=== PATIENT | male | born 1990 | race Caucasian/White ===

== ENCOUNTER 2019-04-20 18:42 | Inpatient (IN) | payer MEDICAID ==
[~2019-04-20] VITALS: Ht 170.2 cm; Wt 84.4 kg
--- NOTE | 2019-04-20 19:03 | ERD ---
ER Documentation Chief Complaint Chief Complaint BACK PAIN HPI The patient is a 28-year-old male, presenting to the ER because of upper and lower back pain for the last couple days, worse today around 2 PM while he was taking a shower. He has subjective fever, denies facial pain, neck pain, chest pain, dyspnea, complains of vague diffuse abdominal pain today, has been vomiting for the last 3 days, nonbloody nonbilious emesis, denies dysuria, complains of constipation. 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 Allergies Allergies: Coded Allergies: No Known Allergy (Unverified , 04/20/19) Physical Exam Vitals Vital Signs Date Temp Pulse Resp B/P (MAP) Pulse Ox O2 O2 Flow FiO2 Time Delivery Rate 04/20/19 110 18 148/98 100 Room Air 20:42 (115) 04/20/19 125 18 128/71 100 Room Air 19:13 (90) 04/20/19 100.0 126 22 135/96 98 18:44 (109) Physical Exam Const: No acute distress. Head: Atraumatic. Eyes: Normal Conjunctiva. ENT: Normal External Ears, Nose and Mouth. Neck: Full range of motion. No meningismus. Resp: Clear to auscultation bilaterally. Cardio: Regular tachycardic. Abd: Soft, non distended, normal bowel sounds, vague and diffuse abdominal tenderness, no rigidity/rebound/CVA tenderness Skin: No petechiae or rashes. Back: Mild to moderate thoracic and lumbar tenderness, no erythema/crepitus. Ext: No cyanosis, or edema. Neur: Awake and alert. No focal deficit Psych: Very anxious Result Diagram: 04/20/19192504/20/191925 Results 24 hrs Laboratory Tests Test 04/20/19 19:26 04/20/19 19:29 White Blood Count 19.0 10^3/ul Red Blood Count 5.61 10^6/ul Hemoglobin 17.1 g/dl Hematocrit 49.4 % Mean Corpuscular Volume 88.1 fl Mean Corpuscular Hemoglobin 30.5 pg Mean Corpuscular Hemoglobin Concent 34.6 g/dl Red Cell Distribution Width 13.7 % Platelet Count 214 10^3/UL Mean Platelet Volume 11.1 fl Immature Granulocytes % 0.400 % Neutrophils % 75.0 % Lymphocytes % 14.6 % Monocytes % 9.7 % Eosinophils % 0.0 % Basophils % 0.3 % Nucleated Red Blood Cells % 0.0 /100WBC Immature Granulocytes # 0.080 10^3/ul Neutrophils # 14.2 10^3/ul Lymphocytes # 2.8 10^3/ul Monocytes # 1.8 10^3/ul Eosinophils # 0.0 10^3/ul Basophils # 0.1 10^3/ul Nucleated Red Blood Cells # 0.0 10^3/ul Prothrombin Time 14.1 Sec Prothrombin Time Ratio 1.1 INR International Normalized Ratio 1.08 Activated Partial Thromboplast Time 30.6 Sec Sodium Level 144 mmol/L Potassium Level 3.2 mmol/L Chloride Level 104 mmol/L Carbon Dioxide Level 19 mmol/L Anion Gap 21 Blood Urea Nitrogen 30 mg/dl Creatinine 3.46 mg/dl Est Glomerular Filtrat Rate mL/min 21 mL/min Glucose Level 122 mg/dl Calcium Level 9.9 mg/dl Total Bilirubin 1.9 mg/dl Direct Bilirubin 0.00 mg/dl Indirect Bilirubin 1.9 mg/dl Aspartate Amino Transf (AST/SGOT) 1112 IU/L Alanine Aminotransferase (ALT/SGPT) 215 IU/L Alkaline Phosphatase 76 IU/L Creatine Kinase 02056 IU/L Troponin I < 0.012 ng/ml Total Protein 8.9 g/dl Albumin 5.2 g/dl Globulin 3.70 g/dl Albumin/Globulin Ratio 1.40 Ethyl Alcohol Level < 10.0 mg/dl POC Venous Lactate 2.1 mmol/L Current Medications Medications Dose Sig/Nieves Start Time Status Last (Trade) Ordered Route PRN Stop Time Admin Dose Reason Admin Sodium 2,390 ml BOLUS OVER 2 04/20/19 DC 04/20/19 Chloride HOURS STAT 19:14 19:37 (NS) IV* 04/20/19 19:18 0.5 mg ONCE STAT 04/20/19 DC 04/20/19 Hydromorphone IV 19:14 19:38 HCl 04/20/19 19:19 (Dilaudid) Ondansetron 4 mg ONCE STAT 04/20/19 DC 04/20/19 HCl (Zofran IV 19:14 19:37 Inj) 04/20/19 19:19 Vancomycin 250 ml @ ONCE ONCE 04/20/19 DC 04/20/19 HCl 125 mls/hr IVPB 20:00 20:59 04/20/19 21:59 Piperacillin 100 ml @ ONCE ONCE 04/20/19 DC 04/20/19 Sod/ 200 mls/hr IVPB 20:00 20:03 Tazobactam 04/20/19 20:29 Sod 0.5 mg ONCE STAT 04/20/19 DC 04/20/19 Hydromorphone IV 20:55 20:59 HCl 04/20/19 20:56 (Dilaudid) Sodium 1,000 ml @ Q5H IV 04/20/19 Chloride 200 mls/hr 22:30 Potassium 40 meq ONCE STAT 04/20/19 UNV Chloride PO 22:19 (Klor-Con 20) 04/20/19 22:20 Procedures/[place] [address] Radiology Main Line: [phone] DIAGNOSTIC IMAGING REPORT Patient: ALEX BOSTON : 1990 Age: 28 Sex: M MR #: [id number] DOS: 04/20/192026 Ordering MD: LEANDRA LAMAS MD Location: E/R Room/Bed: PROCEDURE: Right upper quadrant abdominal ultrasound. CLINICAL INDICATION: Abdominal pain TECHNIQUE: Romero scale and color doppler ultrasound images of the right upper quadrant of the abdomen. COMPARISON: None FINDINGS: Pancreas: Not adequately visualized due to overlying bowel gas. Liver: Morphology:Normal in size. Contour:Normal, no evidence of nodularity. Echogenicity: Increased Focal lesions:None. Main portal vein: Patent with hepatopetal flow. Biliary System: Gallbladder wall: Normal thickness. Gallstones: None. Intrahepatic bile ducts: Normal caliber. Common bile duct diameter (mm): 3.7 Kidneys: Right length (cm) : 12.0 Right cortical thickness: Normal. Echogenicity: Normal. Hydronephrosis: None. Renal calculi: None. Focal lesions: None. Free fluid/ascites: None. Other findings: None. IMPRESSION: Normal gallbladder without gallstones. Increased echogenicity of the liver parenchyma suggestive of hepatic steatosis. RPTAT: AADD .Patrick Dang MD, MD Date Time Electronically viewed and signed by .Patrick Dang MD, MD on 04/20/2019 21:01 .B/ CC: LEANDRA LAMAS MD [id number] RPTAT: AADD .Patrick Dang MD, MD Date Time Electronically viewed and signed by .Patrick Dang MD, MD on 04/20/2019 21:01 .B/ CC: LEANDRA LAMAS MD [id number] [place] [address] Radiology Main Line: [phone] DIAGNOSTIC IMAGING REPORT Patient: ALEX BOSTON : 1990 Age: 28 Sex: M MR #: [id number] DOS: 04/20/19 1914 Ordering MD: LEANDRA LAMAS MD Location: E/R Room/Bed: PROCEDURE: CT chest, abdomen and pelvis without contrast. CLINICAL INDICATION: Back pain. TECHNIQUE: CT of the chest, abdomen and pelvis was performed on a multi-detector high-resolution CT scanner. Contiguous axial images were obtained without intravenous contrast. Coronal and sagittal reformatted images were also obtained. Images were reviewed on the PACS workstation. DICOM images are available. One or more of the following dose reduction techniques were used: - Automated exposure control. - Adjustment of the mA and/or kV according to patient size. - Use of iterative reconstruction technique. Exam CTD/vol = 11.66 mGy. Total exam DLP = 960.03 mGy-cm. COMPARISON: None. FINDINGS: Chest: There is no evidence of chest wall mass. The visualized thyroid gland is unremarkable. There are no enlarged axillary lymph nodes. There are no enlarged mediastinal or hilar lymph nodes. The heart is normal in size. There is no peric ardial thickening or effusion. The aorta is of normal course and caliber. There is no parenchymal consolidation or pleural effusion. The central tracheobronchial tree is within normal limits. There is no pneumothorax. Abdomen: The liver is normal in size. There is no focal mass or dilatation of th e biliary tree. The gallbladder is not distended. The spleen, pancreas and bilateral adrenal glands are within normal limits. Bilateral kidneys are normal in size with no contour deforming mass. There is no radiopaque renal or ureteral calculus identified. There is no hydronephrosis or hydroureter. There is no retroperitoneal adenopathy. The abdominal aorta is of normal caliber. There is no abnormal bowel wall thickening or distension. There is no bowel obstruction or free air. A normal appendix is identified. There is no diverticulosis or diverticulitis. There is no ascites. Pelvis: The bladder is unremarkable. The prostate and seminal vesicles are within normal limits. There is no significant pelvic adenopathy or free fluid. Evaluation of the osseous structures demonstrates no suspicious lytic or blastic lesion. IMPRESSION: No acute abnormality identified within the chest, abdomen and pelvis. .Rambo Rivero MD, MD Date Time Electronically viewed and signed by .Rambo Rivero MD, on 04/20/2019 21:47 .T/ CC: LEANDRA LAMAS MD [phone] [place] [address] Radiology Main Line: [phone] DIAGNOSTIC IMAGING REPORT Patient: ALEX BOSTON : 1990 Age: 28 Sex: M MR #: [id number] DOS: 04/20/19 191 Ordering MD: LEANDRA LAMAS MD Location: E/R Room/Bed: PROCEDURE: XR Chest 1 View. CLINICAL INDICATION: Shortness of breath. Sepsis. TECHNIQUE: Single view of the chest was obtained. COMPARISON: None. FINDINGS: Support lines and tubes: None. Mediastinum: Within normal limits of size. Lungs: No consolidations. No pneumothorax. Osseous structures: Intact. Other: None. IMPRESSION: No visualized active disease. RPTAT: AA .Dom Zhong MD, Date Time Electronically viewed and signed by .Dom Zhong MD, on 04/20/2019 20:30 .P/ CC: LEANDRA LAMAS MD [phone] EKG: Read by emergency physician Rate/Rhythm: Sinus tachycardia 110 beats/min QRS, ST, T-waves: No ST elevation, no T inversion, bilateral atrial enlargement Impression: Abnormal EKG UA/UDS Pending MEDICAL MAKING DECISION: The patient is a 28-year-old male, presenting with acute rhabdomyolysis, acute severe sepsis, acute hypokalemia, acute kidney injury, acute abnormal LFT, hepatic steatosis, cholangitis, cholecystitis He was treated with normosaline 30 mm/kg IV, vancomycin IV, Zosyn IV for acute severe sepsis, Virgen catheter for acute kidney injury, Dilaudid 0.5 mg IV x2 for his general body pain with good response. The differential diagnoses considered include but are not limited to spinal abscess, pneumonia, UTI, pyelonephritis, endocarditis MDM: Patient's infectious symptoms have not stabilized and the patient is at risk of rapid decompensation. The patient will be admitted for careful hydration, antibiotic therapy, and infectious source control. SEVERE SEPSIS CRITERIA: Infectious source: unknown End organ damage indicated by: [Lactate > 2.0 mmol/L SEPSIS MANAGEMENT Time of recognition of severe sepsis: 7:35pm 3 HOUR BUNDLE Blood cultures x 2 before broad-spectrum antibiotics: [Yes] 30 ml/kg NS bolus [Completed] Initial lactate []2.1 Repeat lactate Pending SEPTIC SHOCK ASSESSMENT: [No] lactic acid > 4.0 [No] Persistent hypotension (SBP < 90 or 40 mmHg drop, MAP < 65) despite 30 mL/kg IV fluid bolus CRITICAL CARE Critical care time [35] minutes Emergent fluid management while maintaining close respiratory support. Provision of immediate and broad-spectrum antibiotic therapy. Simultaneous assessment for possible sources in order to direct targeted therapy. Consideration for invasive and chemical support to prevent cardiopulmonary collapse. Critical care time is independent of procedures performed. Departure Diagnosis: Primary Impression: Rhabdomyolysis Additional Impressions: Severe sepsis POPEYE (acute kidney injury) Hypokalemia Abnormal LFTs Hepatic steatosis Condition: Stable Comments I discussed the findings with the patient. I notified the patient with Dr. Barber at 10:10 PM via [employer] , who was made aware of the lab, the treatment, the patient condition, pending labs. The patient is admitted to [facility] Disclaimer: Inadvertent spelling and grammatical errors are likely due to EHR/d ictation software use and do not reflect on the overall quality of patient care. Also, please note that the electronic time recorded on this note does not necessarily reflect the actual time of the patient encounter. LEANDRA LAMAS MD Apr 20, 2019 19:03
[2019-04-20] MEDS ORDERED: SODIUM CHLORIDE 0.9% 1L BAG IV* STA (19:14)
[2019-04-20] MEDS ORDERED: ONDANSETRON 4 MG INJ IV STA (19:14)
[2019-04-20] MEDS ORDERED: HYDROmorphONE 0.5 MG/0.5 ML SYG IV STA ×2 (19:14→20:55)
[2019-04-20] MEDS ORDERED: VANCOMYCIN 1 GM (PMX) 250 ML IVPB ONE (20:00)
[2019-04-20] MEDS ORDERED: PIPER-TAZO 3.375 GM IV (PMX) 100 ML IVPB ONE (20:00)
[2019-04-20] MEDS ORDERED: POTASSIUM CHLORIDE (SR) 20 MEQ TAB PO STA (22:19)
--- NOTE | 2019-04-20 22:28 | HP ---
Date/Time of Note Date/Time of Note DATE: 04/20/19 TIME: 22:27 Assessment/Plan VTE Prophylaxis Pharmacological prophylaxis: heparin Lines/Catheters IV C[facility]ter Type (from [facility]): Saline Lock Assessment/Plan Hospital Course This is a 27-year-old male being admitted to the telemetry floor for: #1 Suspect sepsis: No source identified at the current time. Broad-spectrum antibiotics. Initial lactic acid 2.1. Will trend . cultures are pending. #2 severe rhabdomyolysis: Etiology possibly secondary to illicit drug use, excessive heat exposure. CK levels in the 77,000 range. Patient also has concurrent renal failure which is a likely a result of this. Patient does not report any history of renal failure. At the current time provide aggressive IV fluid hydration with normal saline at a rate of 200 to 250 cc an hour. A Virgen catheter has been placed and producing orange-tinged urine. Will monitor urine output. Will monitor CK levels. We will check a ABG level, and consider alkalizing the urine with sodium bicarb. We will also check uric acid level. Will consult nephrology . #3 acute kidney injury: I do not have a previous creatinine. Patient presented creatinine of 3.46. Likely secondary to dehydration, and possible insult from severe rhabdo. Will aggressively hydrate the patient. Will order renal u ltrasound. Urinalysis. Urine studies. Will consult nephrology . Monitor electrolytes closely #4 transaminitis with hyperbilirubinemia: Imaging studies do not show any acute on normalities aside from hepatic steatosis. This likely could be secondary to underlying rhabdomyolysis. Will monitor LFTs while treating the rhabdo. #5 illicit drug use: PRN Ativan for signs of withdrawal. Encourage cessation. #6 DVT GI prophylaxis: Heparin subcu, no GI prophylaxis indicated Further treatment strategy will be implemented as per the clinical course. Result Diagram: 04/20/19192504/20/191925 Results 24hrs Laboratory Tests Test 04/20/19 19:26 04/20/19 19:29 04/20/19 21:31 White Blood Count 19.0 H Red Blood Count 5.61 Hemoglobin 17.1 Hematocrit 49.4 Mean Corpuscular Volume 88.1 Mean Corpuscular Hemoglobin 30.5 Mean Corpuscular Hemoglobin Concent 34.6 Red Cell Distribution Width 13.7 Platelet Count 214 Mean Platelet Volume 11.1 H Immature Granulocytes % 0.400 Neutrophils % 75.0 Lymphocytes % 14.6 L Monocytes % 9.7 Eosinophils % 0.0 Basophils % 0.3 Nucleated Red Blood Cells % 0.0 Immature Granulocytes # 0.080 H Neutrophils # 14.2 H Lymphocytes # 2.8 Monocytes # 1.8 H Eosinophils # 0.0 Basophils # 0.1 Nucleated Red Blood Cells # 0.0 Prothrombin Time 14.1 Prothrombin Time Ratio 1.1 INR International Normalized Ratio 1.08 Activated Partial Thromboplast Time 30.6 Sodium Level 144 Potassium Level 3.2 L Chloride Level 104 Carbon Dioxide Level 19 L Anion Gap 21 H Blood Urea Nitrogen 30 H Creatinine 3.46 H Est Glomerular Filtrat Rate mL/min 21 L Glucose Level 122 Calcium Level 9.9 Total Bilirubin 1.9 H Direct Bilirubin 0.00 Indirect Bilirubin 1.9 H Aspartate Amino Transf (AST/SGOT) 1112 H Alanine Aminotransferase (ALT/SGPT) 215 H Alkaline Phosphatase 76 Creatine Kinase 63487 H Troponin I < 0.012 Total Protein 8.9 H Albumin 5.2 H Globulin 3.70 H Albumin/Globulin Ratio 1.40 Ethyl Alcohol Level < 10.0 H POC Venous Lactate 2.1 *H Lactic Acid Level 1.6 HPI/ROS Admit Date/Time Admit Date/Time Hx of Present Illness Chief complaint: Upper and lower back pain, vomiting, arm stiffness for the last 2 days This is a 28-year-old male who presented to the emergency department with complaints of upper and lower back pain for the last 2 days and bilateral arm and leg stiffness for the last 2 days as well. Patient reports that he was moving from the [facility] and has been mostly staying in his car and has been outside for the last 3 days. He does report that he also started using a new drink called C4. He does report recent methamphetamine use as well. He does report that he has been in the sun quite a lot the last 3 days. He reports that it was difficult for him to contract his hands bilaterally however after coming to the emergency department and receiving treatment his symptoms are improving. He does not know the last time that he urinated. He had a Virgen catheter placed in the emergency department that was producing orange-tinged urine. Also reports she had abdominal pain and he had nonbilious nonbloody episode of vomiting. He is a IV drug user and uses methamphetamines. He also has used other drugs in the past as well. Allergies: NKDA Medications: None ROS Const: As per HPI Eyes : No pain discharge or redness or change in visual acuity ENT: No pain, sore throat, congestion, congestion, dysphagia or discharge Respiratory: No shortness of breath, cough, sputum, wheezing, or pleuritic pain Cardiovascular: No chest pain, palpitation, PND, or edema GI : As per HPI Genitourinary: No dysuria, hematuria, flank pain , discharge or CVA tenderness Musculoskeletal: As per HPI Skin: No rash, bruising or hives Neuro: No headache, dizziness, syncope, seizure, focal weakness Endocrine: No polyuria, polydipsia, temperature intolerance Psych: No hallucination, depression, anxiety or suicidal ideation PMH/Family/Social Past Medical History Medical History: no pertinent history Medications Current Medications Sodium Chloride 1,000 ml @ 200 mls/hr Q5H IV ; Start 04/20/19 at 22:30 IV Flush (NS 3 ml) 3 ml PER PROTOCOL IV ; Start 04/20/19 at 22:30 Ondansetron HCl (Zofran Inj) 4 mg Q6H PRN IV NAUSEA/VOMITING; Start 04/20/19 at 22:30 Acetaminophen (Tylenol Tab) 650 mg Q6H PRN PO .PAIN 1-3 OR TEMP; Start 04/20/19 at 22:30 Morphine Sulfate (morphine) 2 mg Q4H PRN IV .SEVERE PAIN 7-10; Start 04/20/19 at 22:30 Docusate Sodium (Colace) 100 mg Q12H PRN PO .CONSTIPATION; Start 04/20/19 at 22:30 Bisacodyl (Dulcolax) 5 mg DAILY PRN PO .CONSTIPATION; Start 04/20/19 at 22:30 Heparin Sodium (Porcine) (Heparin (5000 Units/1ml)) 5,000 unit Q8 SC ; Start 04/20/19 at 22:30 Coded Allergies: No Known Allergy (Unverified , 04/20/19) Past Surgical History Pilonidal cyst removal Social History Alcohol Use: none Smoking Status: Current some day smoker Drug Use: other (Methamphetamine, heroin) Exam/Review of Systems Vital Signs Vitals Vital Signs Date Temp Pulse Resp B/P (MAP) Pulse Ox O2 O2 Flow FiO2 Time Delivery Rate 04/20/19 110 18 148/98 100 Room Air 20:42 (115) 04/20/19 100.0 18:44 Exam Exam General: Patient is a pleasant male currently lying in bed in no acute distress, he does report that he is able to move his bilateral upper arms better and contract them HEENT: Atraumatic, normocephalic. The pupils are equal, round and reactive. Extraocular motor are intact Neck: Supple with full range of motion. No rigidity or meningismus Chest: Nontender Lungs: Clear to auscultation bilaterally no crackles rales or wheezing Heart: Normal S1-S2, Regular rhythm and rate. No murmur, S3, or S4 Abdomen: Soft , nontender, nondistended , bowel sounds are present. No guarding no rebound tenderness , No masses or organomegaly. No costovertebral temporal angle mass Genitourinary: Virgen catheter in place: Draining orange-tinged urine Extremities: Bilateral upper and lower extremity normal to inspection, non-ten se. Palpable pulses. No cyanosis noted. Neurologic: Normal mental status, speech normal, cranial nerves II through XII are intact, motor and sensory are intact, Additional Comments PROCEDURE: Right upper quadrant abdominal ultrasound. CLINICAL INDICATION: Abdominal pain TECHNIQUE: Romero scale and color doppler ultrasound images of the right upper quadrant of the abdomen. COMPARISON: None FINDINGS: Pancreas: Not adequately visualized due to overlying bowel gas. Liver: Morphology:Normal in size. Contour:Normal, no evidence of nodularity. Echogenicity: Increased Focal lesions:None. Main portal vein: Patent with hepatopetal flow. Biliary System: Gallbladder wall: Normal thickness. Gallstones: None. Intrahepatic bile ducts: Normal caliber. Common bile duct diameter (mm): 3.7 Kidneys: Right length (cm) : 12.0 Right cortical thickness: Normal. Echogenicity: Normal. Hydronephrosis: None. Renal calculi: None. Focal lesions: None. Free fluid/ascites: None. Other findings: None. IMPRESSION: Normal gallbladder without gallstones. Increased echogenicity of the liver parenchyma suggestive of hepatic steatosis. RPTAT: AADD .Patrick Dang MD, Date Time Electronically viewed and signed by .Patrick Dang MD, MD on 04/20/2019 21:01 .B/ CC: LEANDRA LAMAS MD [id number] PROCEDURE: CT chest, abdomen and pelvis without contrast. CLINICAL INDICATION: Back pain. TECHNIQUE: CT of the chest, abdomen and pelvis was performed on a multi-detector high-resolution CT scanner. Contiguous axial images were obtained without intravenous contrast. Coronal and sagittal reformatted images were also obtained. Images were reviewed on the PACS workstation. DICOM images are available. One or more of the following dose reduction techniques were used: - Automated exposure control. - Adjustment of the mA and/or kV according to patient size. - Use of iterative reconstruction technique. Exam CTD/vol = 11.66 mGy. Total exam DLP = 960.03 mGy-cm. COMPARISON: None. FINDINGS: Chest: There is no evidence of chest wall mass. The visualized thyroid gland is unremarkable. There are no enlarged axillary lymph nodes. There are no enlarged mediastinal or hilar lymph nodes. The heart is normal in size. There is no pericardial thickening or effusion. The aorta is of normal course and caliber. There is no parenchymal consolidation or pleural effusion. The central tracheobronchial tree is within normal limits. There is no pneumothorax. Abdomen: The liver is normal in size. There is no focal mass or dilatation of the biliary tree. The gallbladder is not distended. The spleen, pancreas and bilateral adrenal glands are within normal limits. Bilateral kidneys are normal in size with no contour deforming mass. There is no radiopaque renal or ureteral calculus identified. There is no hydronephrosis or hydroureter. There is no retroperitoneal adenopathy. The abdominal aorta is of normal caliber. There is no abnormal bowel wall thickening or distension. There is no bowel obstruction or free air. A normal appendix is identified. There is no diverticulosis or diverticulitis. There is no ascites. Pelvis: The bladder is unremarkable. The prostate and seminal vesicles are within normal limits. There is no significant pelvic adenopathy or free fluid. Evaluation of the osseous structures demonstrates no suspicious lytic or blastic lesion. IMPRESSION: No acute abnormality identified within the chest, abdomen and pelvis. .Rambo Rivero MD, MD Date Time Electronically viewed and signed by .Rambo Rivero MD, MD on 04/20/2019 21:47 .T/ CC: LEANDRA LAMAS MD [id number] PROCEDURE: CT chest, abdomen and pelvis without contrast. CLINICAL INDICATION: Back pain. TECHNIQUE: CT of the chest, abdomen and pelvis [facility]. Contiguous axial images were obtained without intravenous contrast. Coronal and sagittal reformatted images were also obtained. Images were reviewed on the PACS workstation. DICOM images are available. One or more of the following dose reduction techniques were used: - Automated exposure control. - Adjustment of the mA and/or kV according to patient size. - Use of iterative reconstruction technique. Exam CTD/vol = 11.66 mGy. Total exam DLP = 960.03 mGy-cm. COMPARISON: None. FINDINGS: Chest: There is no evidence of chest wall mass. The visualized thyroid gland is unremarkable. There are no enlarged axillary lymph nodes. There are no enlarged mediastinal or hilar lymph nodes. The heart is normal in size. There is no pericardial thickening or effusion. The aorta is of normal course and caliber. There is no parenchymal consolidation or pleural effusion. The central tracheobronchial tree is within normal limits. There is no pneumothorax . Abdomen: The liver is normal in size. There is no focal mass or dilatation of the biliary tree. The gallbladder is not distended. The spleen, pancreas and bilateral adrenal glands are within normal limits. Bilateral kidneys are normal in size with no contour deforming mass. There is no radiopaque renal or ureteral calculus identified. There is no hydronephrosis or hydroureter. There is no retroperitoneal adenopathy. The abdominal aorta is of normal caliber. There is no abnormal bowel wall thickening or distension. There is no bowel obstruction or free air. A normal appendix is identified. There is no diverticulosis or diverticulitis. There is no ascites. Pelvis: The bladder is unremarkable. The prostate and seminal vesicles are within normal limits. There is no significant pelvic adenopathy or free fluid. Evaluation of the osseous structures demonstrates no suspicious lytic or blastic lesion. IMPRESSION: No acute abnormality identified within the chest, abdomen and pelvis. .Rambo Rivero MD, MD Date Time Electronically viewed and signed by .Rambo Rivero MD, MD on 04/20/2019 21:13 .T/ CC: LEANDRA LAMAS MD [id number] PROCEDURE: XR Chest 1 View. CLINICAL INDICATION: Shortness of breath. Sepsis. TECHNIQUE: Single view of the chest was obtained. COMPARISON: None. FINDINGS: Support lines and tubes: None. Mediastinum: Within normal limits of size. Lungs: No consolidations. No pneumothorax. Osseous structures: Intact. Other: None. IMPRESSION: No visualized active disease. RPTAT: AA .Dom Zhong MD, MD Date Time Electronically viewed and signed by .Dom Zhong MD, MD on 04/20/2019 20:30 .P/ CC: LEANDRA LAMAS MD [id number] ELLEN LITTLEJOHN Apr 20, 2019 22:28
[2019-04-20] MEDS ORDERED: ACETAMINOPHEN 325 MG TAB PO PRN (22:30)
[2019-04-20] MEDS ORDERED: BISACODYL (EC) 5 MG TAB PO PRN (22:30)
[2019-04-20] MEDS ORDERED: DOCUSATE SODIUM 100 MG CAP PO PRN (22:30)
[2019-04-20] MEDS ORDERED: LORAZEPAM 2 MG INJ IV PRN (22:30)
[2019-04-20] MEDS ORDERED: morphine 2 MG INJ IV PRN (22:30)
[2019-04-20] MEDS ORDERED: NACL 0.9% 3 ML SYG IV SCH (22:30)
[2019-04-20] MEDS ORDERED: ONDANSETRON 4 MG INJ IV PRN (22:30)
[2019-04-20] MEDS ORDERED: CEFTRIAXONE 2 GM/50 ML (PMX) 50 ML IVPB SCH (23:00)
[2019-04-20] MEDS: SOD CHLORIDE 0.9% 1,000 ML IV SCH (23:12)
[2019-04-20] MEDS: HEPARIN 5,000 UNIT/1 ML VIAL SC SCH (23:14)
[2019-04-21] MEDS ORDERED: NA BICARBONATE 8.4% 50 ML SYG IV ONE (00:30)
[2019-04-21 02:05] VITALS: BP 136/78; PULSE 83; RESP 19
[2019-04-21] MEDS ORDERED: ONDANSETRON 4 MG INJ IV PRN (02:30)
[2019-04-21 02:45] VITALS: Ht 170.2 cm; Wt 84.4 kg
[2019-04-21] MEDS: SOD CHLORIDE 0.9% 1,000 ML IV SCH ×4 (03:17→16:57)
[2019-04-21 04:00] VITALS: BP 129/76; PULSE 70; RESP 19
[2019-04-21] MEDS: HEPARIN 5,000 UNIT/1 ML VIAL SC SCH ×2 (06:19→14:53)
[2019-04-21 07:28] VITALS: BP 137/71; PULSE 74; RESP 20
[2019-04-21] MEDS ORDERED: ALLOPURINOL 100 MG TAB PO ONE (07:30)
[2019-04-21] MEDS ORDERED: LINEZOLID 600 MG/300 ML (PMX) 300 ML IVPB SCH (09:00)
[2019-04-21 12:11] VITALS: BP 137/71; PULSE 68; RESP 20
[2019-04-21] MEDS ORDERED: POTASSIUM CHLORIDE (SR) 20 MEQ TAB PO STA (12:23)
--- NOTE | 2019-04-21 12:24 | PN ---
Date/Time of Note Date/Time of Note DATE: 04/21/19 TIME: 12:13 Assessment/Plan VTE Prophylaxis Risk score (from Ns)>0 risk: 1 SCD applied (from Ns): Yes Pharmacological prophylaxis: heparin Lines/Catheters IV Catheter Type (from [facility]): Saline Lock Urinary Cath still in place: No Assessment/Plan Assessment/Plan 1. Heat exhaustion, IVF 2. Dehydration, IVF 3. Rhabdomyolysis, due to heat exhaustion and substance abuse, IVF 4. Acute renal failure, IVF 5. Leukocytosis due to heat exhaustion, no evidence of infection, stop antibiotics 6. Substance abuse, advise to quit 7. Transaminitis, heat exhaustion related 8. DVT prophylaxis: heparin Result Diagram: 04/21/1953004/21/1931 Results 24hrs Laboratory Tests Test 04/20/19 19:26 04/20/19 19:29 04/20/19 21:31 04/20/19 23:26 White Blood Count 19.0 H Red Blood Count 5.61 Hemoglobin 17.1 Hematocrit 49.4 Mean Corpuscular 88.1 Volume Mean Corpuscular 30.5 Hemoglobin Mean Corpuscular 34.6 Hemoglobin Concen t Red Cell 13.7 Distribution Width Platelet Count 214 Mean Platelet 11.1 H Volume Immature 0.400 Granulocytes % Neutrophils % 75.0 Lymphocytes % 14.6 L Monocytes % 9.7 Eosinophils % 0.0 Basophils % 0.3 Nucleated Red 0.0 Blood Cells % Immature 0.080 H Granulocytes # Neutrophils # 14.2 H Lymphocytes # 2.8 Monocytes # 1.8 H Eosinophils # 0.0 Basophils # 0.1 Nucleated Red 0.0 Blood Cells # Prothrombin Time 14.1 Prothrombin Time 1.1 Ratio INR International 1.08 Normalized Ratio Activated 30.6 Partial Thrombopl ast Time Sodium Level 144 Potassium Level 3.2 L Chloride Level 104 Carbon Dioxide 19 L Level Anion Gap 21 H Blood Urea 30 H Nitrogen Creatinine 3.46 H Est Glomerular 21 L Filtrat Rate mL/min Glucose Level 122 Calcium Level 9.9 Total Bilirubin 1.9 H Direct Bilirubin 0.00 Indirect 1.9 H Bilirubin Aspartate Amino 1112 H Transf (AST/SGOT) Alanine 215 H Aminotransferase (ALT/SGPT) Alkaline 76 Phosphatase Creatine Kinase 68348 H Troponin I < 0.012 Total Protein 8.9 H Albumin 5.2 H Globulin 3.70 H Albumin/Globulin 1.40 Ratio Ethyl Alcohol < 10.0 H Level POC Venous 2.1 *H Lactate Lactic Acid Level 1.6 Blood Gas Blood venous Specimen Source Arterial Blood 04/20/2019 11:55: Date Drawn 23 PM Arterial Blood VENOUS LINE Gas Puncture Site Armand Test N/A Venous Blood pH 7.327 L Venous Blood pCO2 39.8 (Temp Corrected) Venous Blood pO2 30.1 H (Temp Corrected) Venous Blood HCO3 20.4 L Venous Blood 54.1 L Oxygen Saturation Venous Blood Base -5.2 L Excess Venous Blood 15.2 Total Hemoglobin Venous Blood 53.7 Oxyhemoglobin Venous Blood 0.2 Methemoglobin Carboxyhemoglobin 0.6 Blood Gas 37.0 Temperature Blood Gas NASAL CANNULA Modality FiO2 27.0 Blood Gas AA Notified Whom Blood Gas 04/21/2019 12:04: Notified Time 15 AM Test 04/20/19 23:45 04/21/19 00:03 04/21/19 02:03 04/21/19 05:31 Lactic Acid Level 1.2 Urine Opiates NEGATIVE Screen Urine NEGATIVE Barbiturates Urine POSITIVE Amphetamines Screen Urine NEGATIVE Benzodiazepines Screen Urine Cocaine NEGATIVE Screen Urine NEGATIVE Cannabinoids Creatine Kinase 28738 #H Creatine Kinase 0.1 Index Creatinine Kinase 26.70 H MB (Mass) Troponin I 0.015 White Blood Count 10.4 # Red Blood Count 4.16 #L Hemoglobin 12.6 #L Hematocrit 37.8 #L Mean Corpuscular 90.9 Volume Mean Corpuscular 30.3 Hemoglobin Mean Corpuscular 33.3 Hemoglobin Concen t Red Cell 14.2 Distribution Width Platelet Count 156 # Mean Platelet 11.2 H Volume Immature 0.300 Granulocytes % Neutrophils % 60.2 Lymphocytes % 29.3 Monocytes % 9.5 Eosinophils % 0.3 Basophils % 0.4 Nucleated Red 0.0 Blood Cells % Immature 0.030 Granulocytes # Neutrophils # 6.3 Lymphocytes # 3.0 H Monocytes # 1.0 H Eosinophils # 0.0 Basophils # 0.0 Nucleated Red 0.0 Blood Cells # Sodium Level 143 Potassium Level 4.3 Chloride Level 112 H Carbon Dioxide 25 Level Anion Gap 6 # Blood Urea 20 Nitrogen Creatinine 1.44 #H Est Glomerular 58 L Filtrat Rate mL/min Glucose Level 102 Hemoglobin A1c 5.2 Calcium Level 7.5 L Magnesium Level 1.7 Total Bilirubin 1.1 Direct Bilirubin 0.00 Indirect 1.1 Bilirubin Aspartate Amino 667 H Transf (AST/SGOT) Alanine 157 H Aminotransferase (ALT/SGPT) Alkaline 39 L Phosphatase Total Protein 5.5 #L Albumin 3.2 #L Globulin 2.30 Albumin/Globulin 1.39 Ratio Triglycerides 110 Level Cholesterol Level 106 LDL Cholesterol, 67 Calculated HDL Cholesterol 17 L Cholesterol/HDL 6.2 Ratio Thyroid 2.750 Stimulating Hormone (TSH) Test 04/21/19 10:04 Creatine Kinase Pending Creatine Kinase Pending Index Creatinine Kinase MB (Mass) Troponin I < 0.012 Subjective 24 Hr Interval Summary Free Text/Dictation feels better today Exam/Review of Systems Exam Vitals Vital Signs Date Temp Pulse Resp B/P (MAP) Pulse Ox O2 O2 Flow FiO2 Time Delivery Rate 04/21/19 98.4 68 20 137/71 98 Room Air 12:11 (93) 04/21/19 2.0 01:05 Intake and Output 04/20/19 04/20/19 04/21/19 1515:00 23:00 07:00 IntakeIntake Total 5280 ml OutputOutput Total 900 ml BalanceBalance 4380 ml Constitutional: alert, oriented, well developed Psych: no complaints, nl mood/affect Head: normocephalic, atraumatic Eyes: nl conjunctiva, EOMI, nl lids ENMT: nl external ears & nose, nl lips & teeth, nl nasal mucosa & septum Neck: supple, non-tender Respiratory: clear to auscultation, normal air movement; No congested cough, No crackles/rales, No diminished breath sounds, No intercostal retraction, No labored breathing, No respirations, No tactile fremitus, No wheezing, No other Cardiovascular: regular rate and rhythm, nl pulses; No bruits, No diastolic murmur, No edema, No gallop, No irregular rhythm, No jugular venous distention (JVD), No murmurs/extra sounds, No rub, No systolic murmur, No S3, No S4, No other Gastrointestinal: soft, nl liver, spleen, non-tender Musculoskeletal: nl extremities to inspection Extremities: normal pulses; No calf tenderness, No cyanosis, No clubbing, No edema, No pitting pedal edema, No palpable cord, No tenderness, No other 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, nl mental status, nl speech, nl strength Skin: nl turgor Results Results 24hrs Laboratory Tests Test 04/20/19 19:26 04/20/19 19:29 04/20/19 21:31 04/20/19 23:26 White Blood Count 19.0 H Red Blood Count 5.61 Hemoglobin 17.1 Hematocrit 49.4 Mean Corpuscular 88.1 Volume Mean Corpuscular 30.5 Hemoglobin Mean Corpuscular 34.6 Hemoglobin Concen t Red Cell 13.7 Distribution Width Platelet Count 214 Mean Platelet 11.1 H Volume Immature 0.400 Granulocytes % Neutrophils % 75.0 Lymphocytes % 14.6 L Monocytes % 9.7 Eosinophils % 0.0 Basophils % 0.3 Nucleated Red 0.0 Blood Cells % Immature 0.080 H Granulocytes # Neutrophils # 14.2 H Lymphocytes # 2.8 Monocytes # 1.8 H Eosinophils # 0.0 Basophils # 0.1 Nucleated Red 0.0 Blood Cells # Prothrombin Time 14.1 Prothrombin Time 1.1 Ratio INR International 1.08 Normalized Ratio Activated 30.6 Partial Thrombopl ast Time Sodium Level 144 Potassium Level 3.2 L Chloride Level 104 Carbon Dioxide 19 L Level Anion Gap 21 H Blood Urea 30 H Nitrogen Creatinine 3.46 H Est Glomerular 21 L Filtrat Rate mL/min Glucose Level 122 Calcium Level 9.9 Total Bilirubin 1.9 H Direct Bilirubin 0.00 Indirect 1.9 H Bilirubin Aspartate Amino 1112 H Transf (AST/SGOT) Alanine 215 H Aminotransferase (ALT/SGPT) Alkaline 76 Phosphatase Creatine Kinase 26879 H Troponin I < 0.012 Total Protein 8.9 H Albumin 5.2 H Globulin 3.70 H Albumin/Globulin 1.40 Ratio Ethyl Alcohol < 10.0 H Level POC Venous 2.1 *H Lactate Lactic Acid Level 1.6 Blood Gas Blood venous Specimen Source Arterial Blood 04/20/2019 11:55: Date Drawn 23 PM Arterial Blood VENOUS LINE Gas Puncture Site Armand Test N/A Venous Blood pH 7.327 L Venous Blood pCO2 39.8 (Temp Corrected) Venous Blood pO2 30.1 H (Temp Corrected) Venous Blood HCO3 20.4 L Venous Blood 54.1 L Oxygen Saturation Venous Blood Base -5.2 L Excess Venous Blood 15.2 Total Hemoglobin Venous Blood 53.7 Oxyhemoglobin Venous Blood 0.2 Methemoglobin Carboxyhemoglobin 0.6 Blood Gas 37.0 Temperature Blood Gas NASAL CANNULA Modality FiO2 27.0 Blood Gas AA Notified Whom Blood Gas 04/21/2019 12:04: Notified Time 15 AM Test 04/20/19 23:45 04/21/19 00:03 04/21/19 02:03 04/21/19 05:31 Lactic Acid Level 1.2 Urine Opiates NEGATIVE Screen Urine NEGATIVE Barbiturates Urine POSITIVE Amphetamines Screen Urine NEGATIVE Benzodiazepines Screen Urine Cocaine NEGATIVE Screen Urine NEGATIVE Cannabinoids Creatine Kinase 22277 #H Creatine Kinase 0.1 Index Creatinine Kinase 26.70 H MB (Mass) Troponin I 0.015 White Blood Count 10.4 # Red Blood Count 4.16 #L Hemoglobin 12.6 #L Hematocrit 37.8 #L Mean Corpuscular 90.9 Volume Mean Corpuscular 30.3 Hemoglobin Mean Corpuscular 33.3 Hemoglobin Concen t Red Cell 14.2 Distribution Width Platelet Count 156 # Mean Platelet 11.2 H Volume Immature 0.300 Granulocytes % Neutrophils % 60.2 Lymphocytes % 29.3 Monocytes % 9.5 Eosinophils % 0.3 Basophils % 0.4 Nucleated Red 0.0 Blood Cells % Immature 0.030 Granulocytes # Neutrophils # 6.3 Lymphocytes # 3.0 H Monocytes # 1.0 H Eosinophils # 0.0 Basophils # 0.0 Nucleated Red 0.0 Blood Cells # Sodium Level 143 Potassium Level 4.3 Chloride Level 112 H Carbon Dioxide 25 Level Anion Gap 6 # Blood Urea 20 Nitrogen Creatinine 1.44 #H Est Glomerular 58 L Filtrat Rate mL/min Glucose Level 102 Hemoglobin A1c 5.2 Calcium Level 7.5 L Magnesium Level 1.7 Total Bilirubin 1.1 Direct Bilirubin 0.00 Indirect 1.1 Bilirubin Aspartate Amino 667 H Transf (AST/SGOT) Alanine 157 H Aminotransferase (ALT/SGPT) Alkaline 39 L Phosphatase Total Protein 5.5 #L Albumin 3.2 #L Globulin 2.30 Albumin/Globulin 1.39 Ratio Triglycerides 110 Level Cholesterol Level 106 LDL Cholesterol, 67 Calculated HDL Cholesterol 17 L Cholesterol/HDL 6.2 Ratio Thyroid 2.750 Stimulating Hormone (TSH) Test 04/21/19 10:04 Creatine Kinase Pending Creatine Kinase Pending Index Creatinine Kinase MB (Mass) Troponin I < 0.012 Medications Medication Current Medications Sodium Chloride 1,000 ml @ 250 mls/hr Q4H IV Last administered on 04/21/19at 11:13; Admin Dose 250 MLS/HR; Start 04/20/19 at 22:30 IV Flush (NS 3 ml) 3 ml PER PROTOCOL IV ; Start 04/20/19 at 22:30 Acetaminophen (Tylenol Tab) 650 mg Q6H PRN PO .PAIN 1-3 OR TEMP; Start 04/20/19 at 22:30 Morphine Sulfate (morphine) 2 mg Q4H PRN IV .SEVERE PAIN 7-10; Start 04/20/19 at 22:30 Docusate Sodium (Colace) 100 mg Q12H PRN PO .CONSTIPATION; Start 04/20/19 at 22:30 Bisacodyl (Dulcolax) 5 mg DAILY PRN PO .CONSTIPATION; Start 04/20/19 at 22:30 Heparin Sodium (Porcine) (Heparin (5000 Units/1ml)) 5,000 unit Q8 SC Last administered on 04/21/19at 06:19; Admin Dose 5,000 UNIT; Start 04/20/19 at 22:30 Linezolid 300 ml @ 300 mls/hr Q12 IVPB Last administered on 04/21/19at 08:28; Admin Dose 300 MLS/HR; Start 04/21/19 at 09:00 Ceftriaxone Sodium 50 ml @ 100 mls/hr Q24H IVPB Last administered on 04/20/19at 23:13; Admin Dose 100 MLS/HR; Start 04/20/19 at 23:00 Lorazepam (Ativan) 1 mg Q2 PRN IV CONTROL WITHDRAWAL SYMPTOMS; Start 04/20/19 at 22:30 Ondansetron HCl (Zofran Inj) 4 mg Q4H PRN IV NAUSEA/VOMITING; Start 04/21/19 at 02:30 SUZANNE ROJO MD Apr 21, 2019 12:24
--- NOTE | 2019-04-21 12:34 | CONS ---
Assessment/Plan Assessment/Plan Assessment/Plan (Daily) 1. acute kidney injury due to ATN from rhabdomyolysis 2. acute rhabdomyolysis 3. Substance abuse 4. Metabolic acidosis due to acute rhabdomyolysis Plan: seen in tele floor CK improving, continue IVF NS at 125 cc/hr Expeting Cr to improve No need for HCo3 drip since HCo3 level is normal pt counselled to avoid substance abuse Will follow up Thanks for consultation Consultation Date/Type/Reason Admit Date/Time 04/20/2019 Date of Consultation: Apr 21, 2019 Type of Consult NEPHROLOGY Reason for Consultation acute kidney injury, acute rhabdomyolysis Requesting Provider: ELLEN LITTLEJOHN Date/Time of Note DATE: 04/21/19 TIME: 12:34 Hx of Present Illness 28-year-old male who presented to the emergency department with complaints of upper and lower back pain for the last 2 days and bilateral arm and leg st iffness for the last 2 days as well. Patient reports that he was moving from the [facility] and has been mostly staying in his car and has been outside for the last 3 days. Recently used amphetamine and C4 drink recently BUN/Cr 30/3.46, HCo3 19 on admisission CK was high, He gets admitted to Telel floor, renal has been consulted for acute kidney injury and acute rhabdomyolysis. Constitutional: poor po Eyes: no complaints ENT: no complaints Respiratory: no complaints Cardiovascular: no complaints Gastrointestinal: no complaints Genitourinary: no complaints Musculoskeletal: back pain, bone/joint pain, other (leg cramps ) Neurologic: no complaints Endocrine: no complaints Lymphatic: no complaints Psychological: no complaints Immunologic: no complaints Past Medical History Medical History: no pertinent history Home Meds No Active Prescriptions or Reported Meds Medications Current Medications Sodium Chloride 1,000 ml @ 125 mls/hr Q8H IV Last administered on 04/21/19at 11:13; Admin Dose 250 MLS/HR; Start 04/20/19 at 22:30 IV Flush (NS 3 ml) 3 ml PER PROTOCOL IV ; Start 04/20/19 at 22:30 Acetaminophen (Tylenol Tab) 650 mg Q6H PRN PO .PAIN 1-3 OR TEMP; Start 04/20/19 at 22:30 Morphine Sulfate (morphine) 2 mg Q4H PRN IV .SEVERE PAIN 7-10; Start 04/20/19 at 22:30 Docusate Sodium (Colace) 100 mg Q12H PRN PO .CONSTIPATION; Start 04/20/19 at 22:30 Bisacodyl (Dulcolax) 5 mg DAILY PRN PO .CONSTIPATION; Start 04/20/19 at 22:30 Heparin Sodium (Porcine) (Heparin (5000 Units/1ml)) 5,000 unit Q8 SC Last administered on 04/21/19at 06:19; Admin Dose 5,000 UNIT; Start 04/20/19 at 22:30 Lorazepam (Ativan) 1 mg Q2 PRN IV CONTROL WITHDRAWAL SYMPTOMS; Start 04/20/19 at 22:30 Ondansetron HCl (Zofran Inj) 4 mg Q4H PRN IV NAUSEA/VOMITING; Start 04/21/19 at 02:30 Allergies: Coded Allergies: No Known Allergy (Unverified , 04/20/19) Past Surgical History Past Surgical Hx: no surgical history Family History Significant Family History: no pertinent family hx Social History Alcohol Use: none Smoking Status: Current some day smoker Drug Use: other (Methamphetamine, heroin) Exam/Review of Systems Exam Vitals Vital Signs Date Temp Pulse Resp B/P (MAP) Pulse Ox O2 O2 Flow FiO2 Time Delivery Rate 04/21/19 98.4 68 20 137/71 98 Room Air 12:11 (93) 04/21/19 2.0 01:05 Intake and Output 04/20/19 04/20/19 04/21/19 1515:00 23:00 07:00 IntakeIntake Total 5280 ml OutputOutput Total 900 ml BalanceBalance 4380 ml Constitutional: alert Psych: no complaints Head: normocephalic Eyes: nl conjunctiva ENMT: nl external ears & nose Neck: supple, non-tender Respiratory: clear to auscultation, normal air movement, diminished breath sounds Cardiovascular: regular rate and rhythm, nl pulses Gastrointestinal: soft, non-tender Musculoskeletal: nl extremities to inspection Extremities: normal pulses 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 Skin: nl turgor Lymph: nl lymph nodes Results Result Diagram: 04/21/19 0531 04/21/19 0531 Results 24hrs Laboratory Tests Test 04/20/19 19:26 04/20/19 19:29 04/20/19 21:31 04/20/19 23:26 White Blood Count 19.0 H Red Blood Count 5.61 Hemoglobin 17.1 Hematocrit 49.4 Mean Corpuscular 88.1 Volume Mean Corpuscular 30.5 Hemoglobin Mean Corpuscular 34.6 Hemoglobin Concen t Red Cell 13.7 Distribution Width Platelet Count 214 Mean Platelet 11.1 H Volume Immature 0.400 Granulocytes % Neutrophils % 75.0 Lymphocytes % 14.6 L Monocytes % 9.7 Eosinophils % 0.0 Basophils % 0.3 Nucleated Red 0.0 Blood Cells % Immature 0.080 H Granulocytes # Neutrophils # 14.2 H Lymphocytes # 2.8 Monocytes # 1.8 H Eosinophils # 0.0 Basophils # 0.1 Nucleated Red 0.0 Blood Cells # Prothrombin Time 14.1 Prothrombin Time 1.1 Ratio INR International 1.08 Normalized Ratio Activated 30.6 Partial Thrombopl ast Time Sodium Level 144 Potassium Level 3.2 L Chloride Level 104 Carbon Dioxide 19 L Level Anion Gap 21 H Blood Urea 30 H Nitrogen Creatinine 3.46 H Est Glomerular 21 L Filtrat Rate mL/min Glucose Level 122 Calcium Level 9.9 Total Bilirubin 1.9 H Direct Bilirubin 0.00 Indirect 1.9 H Bilirubin Aspartate Amino 1112 H Transf (AST/SGOT) Alanine 215 H Aminotransferase (ALT/SGPT) Alkaline 76 Phosphatase Creatine Kinase 12111 H Troponin I < 0.012 Total Protein 8.9 H Albumin 5.2 H Globulin 3.70 H Albumin/Globulin 1.40 Ratio Ethyl Alcohol < 10.0 H Level POC Venous 2.1 *H Lactate Lactic Acid Level 1.6 Blood Gas Blood venous Specimen Source Arterial Blood 04/20/2019 11:55: Date Drawn 23 PM Arterial Blood VENOUS LINE Gas Puncture Site Armand Test N/A Venous Blood pH 7.327 L Venous Blood pCO2 39.8 (Temp Corrected) Venous Blood pO2 30.1 H (Temp Corrected) Venous Blood HCO3 20.4 L Venous Blood 54.1 L Oxygen Saturation Venous Blood Base -5.2 L Excess Venous Blood 15.2 Total Hemoglobin Venous Blood 53.7 Oxyhemoglobin Venous Blood 0.2 Methemoglobin Carboxyhemoglobin 0.6 Blood Gas 37.0 Temperature Blood Gas NASAL CANNULA Modality FiO2 27.0 Blood Gas AA Notified Whom Blood Gas 04/21/2019 12:04: Notified Time 15 AM Test 04/20/19 23:45 04/21/19 00:03 04/21/19 02:03 04/21/19 05:31 Lactic Acid Level 1.2 Urine Opiates NEGATIVE Screen Urine NEGATIVE Barbiturates Urine POSITIVE Amphetamines Screen Urine NEGATIVE Benzodiazepines Screen Urine Cocaine NEGATIVE Screen Urine NEGATIVE Cannabinoids Creatine Kinase 92503 #H Creatine Kinase 0.1 Index Creatinine Kinase 26.70 H MB (Mass) Troponin I 0.015 White Blood Count 10.4 # Red Blood Count 4.16 #L Hemoglobin 12.6 #L Hematocrit 37.8 #L Mean Corpuscular 90.9 Volume Mean Corpuscular 30.3 Hemoglobin Mean Corpuscular 33.3 Hemoglobin Concen t Red Cell 14.2 Distribution Width Platelet Count 156 # Mean Platelet 11.2 H Volume Immature 0.300 Granulocytes % Neutrophils % 60.2 Lymphocytes % 29.3 Monocytes % 9.5 Eosinophils % 0.3 Basophils % 0.4 Nucleated Red 0.0 Blood Cells % Immature 0.030 Granulocytes # Neutrophils # 6.3 Lymphocytes # 3.0 H Monocytes # 1.0 H Eosinophils # 0.0 Basophils # 0.0 Nucleated Red 0.0 Blood Cells # Sodium Level 143 Potassium Level 4.3 Chloride Level 112 H Carbon Dioxide 25 Level Anion Gap 6 # Blood Urea 20 Nitrogen Creatinine 1.44 #H Est Glomerular 58 L Filtrat Rate mL/min Glucose Level 102 Hemoglobin A1c 5.2 Calcium Level 7.5 L Magnesium Level 1.7 Total Bilirubin 1.1 Direct Bilirubin 0.00 Indirect 1.1 Bilirubin Aspartate Amino 667 H Transf (AST/SGOT) Alanine 157 H Aminotransferase (ALT/SGPT) Alkaline 39 L Phosphatase Total Protein 5.5 #L Albumin 3.2 #L Globulin 2.30 Albumin/Globulin 1.39 Ratio Triglycerides 110 Level Cholesterol Level 106 LDL Cholesterol, 67 Calculated HDL Cholesterol 17 L Cholesterol/HDL 6.2 Ratio Thyroid 2.750 Stimulating Hormone (TSH) Test 04/21/19 10:04 Creatine Kinase Pending Creatine Kinase Pending Index Creatinine Kinase MB (Mass) Troponin I < 0.012 Medications Medication Current Medications Sodium Chloride 1,000 ml @ 125 mls/hr Q8H IV Last administered on 04/21/19at 11:13; Admin Dose 250 MLS/HR; Start 04/20/19 at 22:30 IV Flush (NS 3 ml) 3 ml PER PROTOCOL IV ; Start 04/20/19 at 22:30 Acetaminophen (Tylenol Tab) 650 mg Q6H PRN PO .PAIN 1-3 OR TEMP; Start 04/20/19 at 22:30 Morphine Sulfate (morphine) 2 mg Q4H PRN IV .SEVERE PAIN 7-10; Start 04/20/19 at 22:30 Docusate Sodium (Colace) 100 mg Q12H PRN PO .CONSTIPATION; Start 04/20/19 at 22:30 Bisacodyl (Dulcolax) 5 mg DAILY PRN PO .CONSTIPATION; Start 04/20/19 at 22:30 Heparin Sodium (Porcine) (Heparin (5000 Units/1ml)) 5,000 unit Q8 SC Last administered on 04/21/19at 06:19; Admin Dose 5,000 UNIT; Start 04/20/19 at 22:30 Lorazepam (Ativan) 1 mg Q2 PRN IV CONTROL WITHDRAWAL SYMPTOMS; Start 04/20/19 at 22:30 Ondansetron HCl (Zofran Inj) 4 mg Q4H PRN IV NAUSEA/VOMITING; Start 04/21/19 at 02:30 GARETT MAYA MD Apr 21, 2019 12:34
[2019-04-21 15:39] VITALS: BP 153/77; PULSE 67; RESP 20
[2019-04-21 19:30] VITALS: BP 149/85; PULSE 74; RESP 20
--- NOTE | 2019-04-22 00:09 | DS ---
Date/Time of Note Date/Time of Note DATE: 04/22/19 TIME: 00:00 Discharge Summary Admission/Discharge Info Admit Date/Time Apr 20, 2019 at 22:11 Discharge Date/Time Apr 21, 2019 at 20:07 Discharge Diagnosis Severe rhabdomyolysis Acute kidney injury secondary to rhabdomyolysis Transaminitis likely secondary to rhabdomyolysis, heat exhaustion Dehydration Illicit drug use Metabolic acidosis secondary to rhabdomyolysis Patient Condition: Fair Consults Dr. Osuna, nephrology Hx of Present Illness Chief complaint: Upper and lower back pain, vomiting, arm stiffness for the last 2 days This is a 28-year-old male who presented to the emergency department with complaints of upper and lower back pain for the last 2 days and bilateral arm and leg stiffness for the last 2 days as well. Patient reports that he was moving from the [facility] and has been mostly staying in his car and has been outside for the last 3 days. He does report that he also started using a new drink called C4. He does report recent methamphetamine use as well. He does report that he has been in the sun quite a lot the last 3 days. He reports that it was difficult for him to contract his hands bilaterally however after coming to the emergency department and receiving treatment his symptoms are improving. He does not know the last time that he urinated. He had a Virgen catheter placed in the emergency department that was producing orange-tinged urine. Also reports she had abdominal pain and he had nonbilious nonbloody episode of vomiting. He is a IV drug user and uses methamphetamines. He also has used other drugs in the past as well. Allergies: NKDA Medications: None Hospital Course This is a 27-year-old male being admitted to the telemetry floor for: #1 Suspect sepsis: No source identified at the current time. Broad-spectrum antibiotics. Initial lactic acid 2.1. Will trend . cultures are pending. #2 severe rhabdomyolysis: Etiology possibly secondary to illicit drug use, excessive heat exposure. CK levels in the 77,000 range. Patient also has concurrent renal failure which is a likely a result of this. Patient does not report any history of renal failure. At the current time provide aggressive IV fluid hydration with normal saline at a rate of 200 to 250 cc an hour. A Virgen catheter has been placed and producing orange-tinged urine. Will monitor urine output. Will monitor CK levels. We will check a ABG level, and consider alkalizing the urine with sodium bicarb. We will also check uric acid level. Will consult nephrology . #3 acute kidney injury: I do not have a previous creatinine. Patient presented creatinine of 3.46. Likely secondary to dehydration, and possible insult from severe rhabdo. Will aggressively hydrate the patient. Will order renal ultrasound. Urinalysis. Urine studies. Will consult nephrology . Monitor electrolytes closely #4 transaminitis with hyperbilirubinemia: Imaging studies do not show any acute on normalities aside from hepatic steatosis. This likely could be secondary to underlying rhabdomyolysis. Will monitor LFTs while treating the rhabdo. #5 illicit drug use: PRN Ativan for signs of withdrawal. Encourage cessation. #6 DVT GI prophylaxis: Heparin subcu, no GI prophylaxis indicated Patient was admitted to the inpatient floor. He was started on aggressive IV fluid hydration with normal saline. He was given a dose of sodium bicarb as well. Patient was seen by nephrology. Patient's renal function through his hospital stay did improve significantly. He is CK levels were trending down. He was also given a dose of allopurinol due to his elevated uric acid level. During patient's hospital course I was notified by the RN that the patient had to have medical issues and wanted to leave AGAINST MEDICAL ADVICE. I did speak to the patient over the telephone and advised patient to not leave AGAINST MEDICAL ADVICE and advised that he continue his current treatment for his rhabdomyolysis and acute kidney injury. Patient stated to me that while he understood the significance of his medical issues he had to leave due to him needing to take care of his daughter. He understood the risks and benefits of leaving the hospital including . I did explain to the patient to stay hydrated and to avoid any illicit drug use and to return to the emergency department if his symptoms worsen, which patient understood. Patient ended up signing out AGAINST MEDICAL ADVICE, AMA. Home Meds No Active Prescriptions or Reported Meds Primary Care Provider Not On Staff Doctor Time spent on discharge: Patient LEFT Against medical advice, AMA. Pending Labs Laboratory Tests Test 04/21/19 00:03 04/21/19 02:03 04/21/19 05:31 04/21/19 10:04 Urine Opiates NEGATIVE (NEGAT Screen BRITTNY) Urine NEGATIVE (NEGAT Barbiturates BRITTNY) Urine POSITIVE (NEGAT Amphetamines BRITTNY) Screen Urine NEGATIVE (NEGAT Benzodiazepines BRITTNY) Screen Urine Cocaine NEGATIVE (NEGAT Screen BRITTNY) Urine NEGATIVE (NEGAT Cannabinoids BRITTNY) Creatine [id number] Kinase IU/L (23-200) IU/L (23-200) Creatine Kinase 0.1 0.1 Index Creatinine 26.70 32.70 Kinase MB ng/ml (0.0-2.4 ng/ml (0.0-2.4 (Mass) ) ) Troponin I 0.015 < 0.012 ng/ml (0.000-0 ng/ml (0.000-0 .120) .120) White Blood 10.4 Count 10^3/ul (4.8-1 0.8) Red Blood 4.16 Count 10^6/ul (4.70- 6.10) Hemoglobin 12.6 g/dl (14.0-18. 0) Hematocrit 37.8 % (42.0-52.0) Mean 90.9 Corpuscular fl (82.0-101.0 Volume ) Mean 30.3 Corpuscular pg (29.0-33.0) Hemoglobin Mean 33.3 Corpuscular g/dl (32.0-37. Hemoglobin Conc 0) ent Red Cell 14.2 Distribution % (11.5-14.5) Width Platelet Count 156 10^3/UL (140-4 15) Mean Platelet 11.2 Volume fl (7.4-10.4) Immature 0.300 Granulocytes % % (0.001-0.429 ) Neutrophils % 60.2 % (39.0-77.0) Lymphocytes % 29.3 % (15.0-51.0) Monocytes % 9.5 % (0.0-11.0) Eosinophils % 0.3 % (0.0-7.0) Basophils % 0.4 % (0.0-2.0) Nucleated Red 0.0 Blood Cells % /100WBC (0.0-0 .0) Immature 0.030 Granulocytes # 10^3/ul (0.0-0 .031) Neutrophils # 6.3 10^3/ul (1.6-7 .5) Lymphocytes # 3.0 10^3/ul (0.8-2 .9) Monocytes # 1.0 10^3/ul (0.3-0 .9) Eosinophils # 0.0 10^3/ul (0.0-0 .5) Basophils # 0.0 10^3/ul (0.0-0 .1) Nucleated Red 0.0 Blood Cells # 10^3/ul (0.0-0 .0) Sodium Level 143 mmol/L (135-14 4) Potassium 4.3 Level mmol/L (3.5-5. 1) Chloride Level 112 mmol/L (97-110 ) Carbon Dioxide 25 Level mmol/L (21-31) Anion Gap 6 (5-13) Blood Urea 20 Nitrogen mg/dl (7-20) Creatinine 1.44 mg/dl (0.61-1. 24) Est Glomerular 58 Filtrat mL/min (>60) Rate mL/min Glucose Level 102 mg/dl (70-220) Hemoglobin A1c 5.2 % (0-5.9) Calcium Level 7.5 mg/dl (8.4-10. 2) Magnesium 1.7 Level mg/dl (1.7-2.5 ) Total 1.1 Bilirubin mg/dl (0.2-1.3 ) Direct 0.00 Bilirubin mg/dl (0.00-0. 20) Indirect 1.1 Bilirubin mg/dl (0-1.1) Aspartate Amino 667 Transf (AST/SGO IU/L (15-46) T) Alanine 157 Aminotransferas IU/L (13-69) e (ALT/SGPT) Alkaline 39 Phosphatase IU/L (42-121) Total Protein 5.5 g/dl (6.1-8.1) Albumin 3.2 g/dl (3.3-4.9) Globulin 2.30 g/dl (1.3-3.2) Albumin/Globuli 1.39 n Ratio Triglycerides 110 Level mg/dl (0-149) Cholesterol 106 Level mg/dl (100-200 ) LDL 67 mg/dl Cholesterol, Calculated HDL 17 Cholesterol mg/dl (28-63) Cholesterol/HDL 6.2 RATIO Ratio Thyroid 2.750 Stimulating MIU/L (0.465-4 Hormone (TSH) .680) Test 04/21/19 12:11 04/21/19 14:20 Sodium Level 140 mmol/L (135-144 ) Potassium 3.6 Level mmol/L (3.5-5.1 ) Chloride Level 109 mmol/L (97-110) Carbon Dioxide 23 Level mmol/L (21-31) Anion Gap 8 (5-13) Blood Urea 15 mg/dl (7-20) Nitrogen Creatinine 0.99 mg/dl (0.61-1.2 4) Est Glomerular > 60 Filtrat mL/min (>60) Rate mL/min Glucose Level 101 mg/dl (70-220) Calcium Level 7.9 mg/dl (8.4-10.2 ) Total 1.2 Bilirubin mg/dl (0.2-1.3) Direct 0.00 Bilirubin mg/dl (0.00-0.2 0) Indirect 1.2 Bilirubin mg/dl (0-1.1) Aspartate Amino 729 Transf (AST/SGO IU/L (15-46) T) Alanine 184 Aminotransferas IU/L (13-69) e (ALT/SGPT) Alkaline 44 Phosphatase IU/L (42-121) Total Protein 6.0 g/dl (6.1-8.1) Albumin 3.6 g/dl (3.3-4.9) Globulin 2.40 g/dl (1.3-3.2) Albumin/Globuli 1.50 n Ratio Urine Color YELLOW (YELLOW ) Urine Clarity CLEAR (CLEAR) Urine pH 6.0 (5.0-9.0) Urine Specific 1.026 (1.003-1 [place] .030) Urine Ketones 1+ mg/dL (NEGATIV E) Urine Nitrite NEGATIVE mg/dL (NEGATIV E) Urine NEGATIVE Bilirubin mg/dL (NEGATIV E) Urine 2+ Urobilinogen mg/dL (NEGATIV E) Urine Leukocyte 1+ Esterase [place]/ul (NEGATI VE) Urine 13 /HPF (0-5) Microscopic RBC Urine 5 /HPF (0-5) Microscopic WBC Urine 2+ Hemoglobin mg/dL (NEGATIV E) Urine Glucose 1+ mg/dL (NEGATIV E) Urine Total 1+ Protein mg/dl (NEGATIV E) ELLEN LITTLEJOHN Apr 22, 2019 00:09
== END 2019-04-21 20:07 | disposition left against medical advice (07) | DRG 558 ==
LOC: E/R 18:42 → 6WM 22:11
PROVIDERS: ADMIT Family Medicine; ATTEND Family Medicine
DX: M62.82 Rhabdomyolysis (principal); N17.9 Acute kidney failure, unspecified; E87.2 Acidosis; F15.90 Other stimulant use, unspecified, uncomplicated; F11.90 Opioid use, unspecified, uncomplicated; Z72.0 Tobacco use; E87.6 Hypokalemia; K76.0 Fatty (change of) liver, not elsewhere classified; E86.0 Dehydration
CPT/HCPCS: 36415; 71045; 71250; 74176; 76705; 76775; 80053; 80061; 80307; 81001; 82550; 82553; 82803; 83036; 83605; 83735; 83930; 83935; 84300; 84443; 84484; 84560; 85025; 85610; 85730; 87086; 93005; 96374; 96375; 96376; J0696; J1170; J1644; J2405; J2543; J3370; J7030